=== PATIENT | female | born 1935 | race Caucasian/White ===

== ENCOUNTER 2017-01-20 14:26 | Outpatient (CLI) | payer BC ==
--- NOTE | 2017-01-21 11:25 | Mammography Report ---
DIGITAL BILATERAL SCREENING MAMMOGRAM: 01/20/2017 COMPARISON: Mammogram 10/10/2013. TECHNIQUE: Bilateral MLO and CC breast views. FINDINGS: Postsurgical change of the right breast is noted. A biopsy clip is in place. The breast parenchyma is extremely dense which may limit the sensitivity of mammography. No mass, architectural distortion, or concerning cluster of microcalcifications are seen in other regards. IMPRESSION: 1. BIRADS CATEGORY 2. BENIGN FINDINGS. 2. RECOMMEND ANNUAL SCREENING MAMMOGRAPHY. STANDARD QUALIFYING STATEMENTS 1. This examination was reviewed with the aid of Computer-Aided Detection (CAD). 2. A negative or benign imaging report should not delay biopsy if clinically suspicious findings are present. Consider surgical consultation if warranted. More than 5% of cancers are not identified by imaging. 3. Dense breasts may obscure an underlying neoplasm. JOB #: [id number] EXT JOB #: [id number] ELIZABETH
== END 2017-01-20 14:27 | disposition home or self-care (01) ==
LOC: DI.S 14:26
PROVIDERS: ATTEND Family Medicine
DX: Z12.31 Encounter for screening mammogram for malignant neoplasm of breast (principal)
CPT/HCPCS: 77067

== ENCOUNTER 2023-09-25 18:18 | Outpatient (CLI) | payer BC, MEDICARE | END 2023-09-25 18:19 | disposition EMS.NT | LOC: EMS 18:18 | DX: Z74.1 Need for assistance with personal care (principal) ==

== ENCOUNTER 2023-09-29 15:19 | Outpatient (CLI) | payer BC | END 2023-09-29 23:59 | disposition critical access hospital (66) | LOC: EMS 15:19 | DX: R41.0 Disorientation, unspecified (principal); R07.89 Other chest pain; R06.00 Dyspnea, unspecified; R11.0 Nausea | CPT/HCPCS: A0425; A0429 ==

== ENCOUNTER 2023-09-29 16:07 | Emergency (ER) | payer BC ==
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
[2023-09-29 17:19] LABS: BASOPHILS % (AUTO) 0.3 %; EOSINOPHILS % (AUTO) 0.3 %; HCT - HEMATOCRIT 36.6 % (37.0-47.0); HGB - HEMOGLOBIN 12.2 g/dL (12.0-16.0); LYMPHOCYTES % (AUTO) 30.7 %; MEAN CORPUSCULAR HGB CONC 33.3 g/dL (32.0-36.0); MEAN CORPUSCULAR VOLUME 84.1 fL (81.0-99.0); MEAN PLATELET VOLUME 8.5 fL (7.9-10.8); MONOCYTES # (AUTO) 0.4 10^3/uL (0.0-1.0); MONOCYTES % (AUTO) 10.9 %; NEUTROPHILS # (AUTO) 1.9 10^3/uL (1.5-6.6); NEUTROPHILS % (AUTO) 57.5 %; PLT - PLATELET COUNT 241 10^3/uL (130-450); RED BLOOD COUNT 4.35 10^6/uL (4.20-5.40); RED CELL DISTRIBUTION WIDTH 13.9 % (12.0-15.0); WHITE BLOOD COUNT 3.2 x10^3/uL (4.8-10.8)
[2023-09-29 17:33] LABS: ALBUMIN 3.9 g/dL (3.2-5.5); ALBUMIN/GLOBULIN RATIO 1.7 (1.0-2.2); BILIRUBIN,TOTAL 0.5 mg/dL (0.2-1.0); CALCIUM 9.1 mg/dL (8.5-10.3); CREATININE 0.9 mg/dL (0.6-1.3); MAGNESIUM 1.9 mg/dL (1.7-2.3); POTASSIUM 3.6 mmol/L (3.5-4.5); TOTAL PROTEIN 6.2 g/dL (6.4-8.9)
[2023-09-29 17:47] LABS: BILIRUBIN,URINE NEGATIVE (NEGATIVE); GLUCOSE, URINE (UA) NEGATIVE (NEGATIVE); KETONES,URINE (UA) TRACE mg/dL (NEGATIVE); LEUKOCYTE ESTERASE, URINE TRACE (NEGATIVE); NITRITE,URINE POSITIVE (NEGATIVE); OCCULT BLOOD,URINE TRACE-INTA (NEGATIVE); PROTEIN,URINE 30 mg/dL (NEGATIVE); UROBILINOGEN,URINE 0.2 (NORMAL) E.U./dL (NORMAL)
[2023-09-29 17:58] LABS: CLARITY,URINE CLOUDY (CLEAR)
[2023-09-29 18:20] LABS: BACTERIA,URINE Many /HPF (None Seen); EPITHELIAL CELLS,UR FEW Transitional /HPF (<= Few); RBC,URINE None Seen /HPF (0-5); SQUAMOUS EPITHELIAL CELL,UR MOD Squamous (<= Few)
[2023-09-29] MEDS: hydrOXYzine PAMOATE 25 MG CAPSULE PO STA (21:08)
[2023-09-29] MEDS: cephALEXin 250 MG CAPSULE PO STA (22:39)
[2023-09-30 06:56] VITALS: O2SAT 95
[2023-09-30] MEDS: cephALEXin 250 MG CAPSULE PO SCH (07:50)
--- NOTE | 2023-09-30 08:50 | ED Physician Documentation ---
ED Addendum - Addendum Addendum: 09/30/23 08:48 The patient has been doing okay overnight. She is up ambulatory to the bathroom. Does have poor orientation but is alert consistent with the dementia. The patient's son is here and is wanting to take her home to his facility correction his house in [place]. That had been a intended plan at some point though the patient had been resistant. She is accepting of it at this time. Social work Nickie came down and talked with them and felt comfortable with the disposition. Social work here will contact the APS fulfillment mail clerk to close the loop on the information and disposition. This seems a reasonable solution. Social work states the patient's son has contacts with home health workers and aides that are experienced with dementia and feels comfortable at this point. I did advise of the mild bladder infection and he asked that we send the prescription to [facility] in [place]. The patient seems otherwise medically clear. Disposition: The patient discharged home in stable condition. Diagnoses: 1. Poor self-care 2. Dementia 3. UTI
[2023-09-30 09:05] VITALS: BP 153/79
--- NOTE | 2023-10-06 05:30 | ED Physician Documentation ---
ED Addendum - Addendum Addendum: 10/06/23 05:29 Received signout/turnover of care from MADHURI Steel; please see her note for complete H&P. In brief, at the time of signout, the patient is being held in the emergency department overnight for social work consult in the morning. There were no issues overnight and I signed out this patient's care to the oncoming ED physician (Dr. Villegas) at the end of my shift.
== END 2023-09-30 09:09 | disposition home or self-care (01) ==
LOC: EDUNIT# → ED 16:07
DX: F03.90 Unspecified dementia, unspecified severity, without behavioral disturbance, psychotic disturbance, mood disturbance, and anxiety (principal); N30.90 Cystitis, unspecified without hematuria; Z76.4 Other boarder to healthcare facility; Z74.1 Need for assistance with personal care; Z59.9 Problem related to housing and economic circumstances, unspecified
CPT/HCPCS: 36415; 80053; 80179; 81001; 83735; 85025; 99284; 99285; A9270; 81003; 87086